=== PATIENT | male | born 1980 | race Caucasian/White ===

== ENCOUNTER 2017-05-10 17:55 | Emergency (ER) | payer OTHER ==
[~2017-05-10] VITALS: Ht 162.6 cm; Wt 52.2 kg
[2017-05-10 18:13] VITALS: BP 132/83; PULSE 102; RESP 16; O2SAT 96
--- NOTE | 2017-05-10 19:14 | ED.REPORT ---
HPI-URI / Cough / Cold Date of Service May 10, 2017 ED Provider: Doc,Ed MD History of Present Illness: 36-year-old male here for nausea, vomiting, diarrhea, cough, fever, body aches. He missed work today and needs a note. Started yesterday and it is better today although he still is having the diarrhea. He states he had a fever of 103 earlier today. He took ibuprofen and this broke. He is a former smoker. Nursing Notes Stated Complaint: FLU SYMPTOMS Chief Complaint: FLU/Cold Symptoms Nursing Notes Reviewed: Yes Allergies: Coded Allergies: No Known Allergies (Unverified , 05/10/17) Scheduled PRN Ondansetron ODT (Zofran ODT) 4 Mg Tablet 4 MG PO Q4H PRN PRN For Nausea General Time Seen by MD: 19:13 Chief Complaint Cough, productive... (Clear), Fever, Upper resp infection nausea, diarrhea Hx Obtained From: Patient Arrived By: Walk-in Onset Occurred: 2 days ago Severity: Current: Mild Severity: Maximum: Moderate Recent Healthcare: No recent doctor visit Similar Sx Previous: No Past Medical History Past Medical History Notes: hx smoking Review of Systems Basic Review of Systems Cardiovascular: No chest pain Constitutional: Reports: Chills, Fever Respiratory: Reports: Prod cough, clear, Denies: Dyspnea on exertion GI: Reports: Abdominal pain, Diarrhea, Nausea, Vomiting Complete sys rev & neg: except as marked. Physical Exam Initial Vital Signs Vital Signs (First) Date Time Temp Pulse Resp B/P Pulse Ox O2 Delivery O2 Flow Rate FiO2 05/10/17 18:13 37.1 102 16 132/83 96 Room Air Initial VS: Reviewed, Vital signs normal Head / Eyes: Atraumatic, Normocephalic, PERRL Neck: Supple, Non-tender, Full range of motion Cardiovascular: Regular rate & rhythm, Heart sounds normal, Intact distal pulses Abdomen / GI: Soft, Non-tender, No guarding, No rebound, No distention Skin: Warm, Dry, No cyanosis Neurologic: Alert, Oriented, Nonfocal Psychiatric: Mood/affect normal, Behavior normal, Normal thought content General/Constitutional: Awake, Alert, Well appearing ENT: Airway patent, Mucous membranes moist, Pharynx NL, Tympanic membs NL, Ext aud canal NL, Nose exam NL, No sinus tenderness Respiratory / Chest: Atraumatic, Breath sounds = bilat Wheezing / Retractions: Positive: Wheezing mild Head / Eyes: Normocephalic, PERRL Neck: Supple, No meningismus, Full range of motion, No adenopathy, No swelling , Non-tender Cardiovascular: Heart rate NL, Regular rhythm, Heart sounds NL, Peripheral circulation NL Abdomen: Soft, Non-tender, No guarding, No rebound Skin: Color NL, No rash, Warm, Dry, Turgor NL Interpretation & Diagnostics Interpretation & Diagnostics: PROCEDURE: X-RAY CHEST, TWO VIEWS ([id number]) INDICATIONS: cough TECHNIQUE: 2 views of the chest were acquired. COMPARISON: [facility], , CHEST 1 VIEW, 03/07/2016, 13:09. FINDINGS: Surgical changes and devices: None. Lungs and pleura: No pleural effusions or pneumothorax. Lungs are clear. Mediastinum: Mediastinal contours are normal. Heart size is normal. Bones and chest wall: No suspicious bony abnormalities. Soft tissues appear unremarkable. IMPRESSION: No acute cardiopulmonary disease. Re-Eval/Medical Decision Med Decision/Clinical Course Med Decision/Clinical Course: note for work given, excuse for today, no work within 24hrs of a fever Discharge & Departure Shift Change Sign-Out Laboratory Evaluation: Lab evaluation discussed Procedures: Results discussed Response to Therapy: Improved Impression: Primary Impression: Upper respiratory infection URI type: unspecified viral URI Qualified Code: J06.9 - Acute upper respiratory infection, unspecified Additional Impression: Gastroenteritis Disposition: Home Discharge Condition All VS Reviewed: Yes Condition: Stable Patient Instructions: Gastroenteritis (ED), Upper Respiratory Infection (ED) Additional Instructions: Light diet as tolerated starting with clear liquids and advancing as tolerated. Use Zofran as needed for nausea and vomiting. Return if you get high fevers, worsening condition, unable to tolerate oral intake or any other concerning symptoms. Otherwise follow-up in 2 days with your PCP if still symptomatic. No work within 24 hours of fever. Referrals: Rayne Montana (PCP) EDSupervising Provider for APC: Ori Chavis Linnea K ARNP May 10, 2017 19:14
--- NOTE | 2017-05-10 19:47 | DRSVH ---
PROCEDURE: X-RAY CHEST, TWO VIEWS ([id number]) INDICATIONS: cough TECHNIQUE: 2 views of the chest were acquired. COMPARISON: [facility], , CHEST 1 VIEW, 03/07/2016, 13:09. FINDINGS: Surgical changes and devices: None. Lungs and pleura: No pleural effusions or pneumothorax. Lungs are clear. Mediastinum: Mediastinal contours are normal. Heart size is normal. Bones and chest wall: No suspicious bony abnormalities. Soft tissues appear unremarkable. IMPRESSION: No acute cardiopulmonary disease. Dictated by: Estuardo Lantigua M.D. on 05/10/2017 at 19:44 Approved by: Estuardo Lantigua M.D. on 05/10/2017 at 19:45
[2017-05-10] MEDS ORDERED: ONDA4TAB9 PO (20:38)
[2017-05-10 20:48] VITALS: BP 114/80; PULSE 85; RESP 20; O2SAT 100
== END 2017-05-10 20:49 | disposition home or self-care (01) ==
LOC: SED 17:55
DX: J06.9 Acute upper respiratory infection, unspecified (principal); K52.9 Noninfective gastroenteritis and colitis, unspecified